=== PATIENT | male | born 1990 | race Caucasian/White ===

== ENCOUNTER 2017-01-06 20:28 | Emergency (ER) | payer OTHER ==
[2017-01-06] MEDS ORDERED: Sodium Chloride 0.9% 1,000 ML IV SCH ×2 (20:30→20:50)
[2017-01-06] MEDS ORDERED: Sodium Chloride 0.9% 10 ML Syringe FLUSH PRN (20:42)
[2017-01-06 20:49] LABS: CHLORIDE,CL 107 mmol/L (98-107); SODIUM,NA 144 mmol/L (136-145)
[2017-01-06] MEDS ORDERED: Ketorolac 30 MG/ML SDV IVPUSH ONE (20:51)
[2017-01-06] MEDS ORDERED: Ketorolac 30 MG/ML SDV ONE (20:51)
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
== END 2017-01-06 21:09 ==
LOC: LL.ED 20:28
DX: S01.01XA Laceration without foreign body of scalp, initial encounter (principal); S80.812A Abrasion, left lower leg, initial encounter; V89.2XXA Person injured in unspecified motor-vehicle accident, traffic, initial encounter
CPT/HCPCS: 36415; 71010; 72170; 80053; 85025; 96361; 96374; 99285; G0480; 99284; J1885